=== PATIENT | female | born 1995 | race Caucasian/White ===

== ENCOUNTER 2017-08-27 11:21 | Emergency (ER) | payer OTHER ==
[~2017-08-27] VITALS: Ht 160 cm; Wt 68.9 kg
[2017-08-27] MEDS ORDERED: HYDROcodone/APAP 5/325 TABLET ONE (11:53)
[2017-08-27] MEDS ORDERED: HYDROcodone/APAP 5/325 TABLET PO PRN (12:00)
[2017-08-27 13:30] VITALS: BP 112/62
== END 2017-08-27 13:32 | disposition home or self-care (01) ==
LOC: ED 12:43
DX: S29.012A Strain of muscle and tendon of back wall of thorax, initial encounter (principal); J45.909 Unspecified asthma, uncomplicated; V29.9XXA Motorcycle rider (driver) (passenger) injured in unspecified traffic accident, initial encounter; Y93.89 Activity, other specified; Y92.830 Public park as the place of occurrence of the external cause; Y99.8 Other external cause status
CPT/HCPCS: 72072; 99284

== ENCOUNTER 2017-09-05 09:22 | Day surgery (SDC) | payer OTHER ==
[~2017-09-05] VITALS: Ht 160 cm; Wt 68.0 kg
[2017-09-05] MEDS ORDERED: LACTATED RINGERS 1,000 ML IV SCH (10:11)
[2017-09-05 10:29] LABS: HCG UR SG 1.019 (1.003-1.030)
[2017-09-05] MEDS ORDERED: GABAPENTIN 300 MG CAPSULE PO ONE (10:30)
[2017-09-05] MEDS ORDERED: SCOPOLAMINE PATCH, 1.5MG PATCH.TD72 TD ONE (10:30)
[2017-09-05] MEDS ORDERED: ACETAMINOPHEN 500 MG TABLET PO ONE (10:30)
[2017-09-05 10:56] VITALS: BP 119/77
[2017-09-05] MEDS ORDERED: MIDAZOLAM 1 MG/ML, 2ML ONE (10:58)
[2017-09-05] MEDS ORDERED: FENTANYL PF 250 MCG/5ML ONE (10:58)
[2017-09-05] MEDS ORDERED: CEFAZOLIN 1,000 MG ONE (10:59)
[2017-09-05] MEDS ORDERED: ONDANSETRON 2MG/ML, 2ML ONE (10:59)
[2017-09-05] MEDS ORDERED: DEXAMETHASONE 4 MG/ML, 1ML ONE (10:59)
[2017-09-05] MEDS ORDERED: PROPOFOL 10 MG/ML, 20ML ONE (10:59)
[2017-09-05] MEDS ORDERED: ALBU8.5H8 INH (11:03)
[2017-09-05] MEDS ORDERED: HYDR-3240 PO (11:03)
[2017-09-05] MEDS ORDERED: BUPIVACAINE/PF-EPI 0.5% 1:200K ONE (11:22)
[2017-09-05] MEDS ORDERED: NEOSPORIN OINT, 15GM ONE (11:23)
[2017-09-05] MEDS ORDERED: SUCCINYLCHOLINE 20 MG/ML, 10ML ONE (11:48)
[2017-09-05] MEDS ORDERED: ROCURONIUM 10 MG/ML,10ML ONE (11:48)
[2017-09-05] MEDS ORDERED: LABETALOL 5MG/ML, 20ML IV PRN (12:30)
[2017-09-05] MEDS ORDERED: HYDROmorphone 1 MG/ML, 1ML IV PRN (12:30)
[2017-09-05] MEDS ORDERED: DIPHENHYDRAMINE 50 MG/ML, 1ML IVPush PRN (12:30)
[2017-09-05] MEDS ORDERED: METOCLOPRAMIDE 5 MG/ML, 2ML IV PRN (12:30)
[2017-09-05] MEDS ORDERED: FENTANYL PF 100 MCG/2ML IV PRN (12:30)
[2017-09-05] MEDS ORDERED: EPHEDRINE 50 MG/ML, 1ML IM PRN (12:30)
[2017-09-05] MEDS ORDERED: PROMETHAZINE 25 MG SUPP PR PRN (12:30)
[2017-09-05] MEDS ORDERED: OXYcodone 5 MG/5 ML ORAL.SOL UDC PO PRN (12:30)
[2017-09-05] MEDS ORDERED: MIDAZOLAM 1 MG/ML, 2ML IV PRN (12:30)
[2017-09-05] MEDS ORDERED: ONDANSETRON 2MG/ML, 2ML IV PRN (12:30)
[2017-09-05] MEDS ORDERED: MEPERIDINE/PF 25MG/0.5ML IVPush PRN (12:30)
[2017-09-05] MEDS ORDERED: ALBUTEROL/IPRATROPIUM 2.5MG/0.5MG, 3 ML NPPB PRN (12:30)
[2017-09-05] MEDS ORDERED: PROMETHAZINE 25 MG/ML, 1ML IV PRN (12:30)
[2017-09-05] MEDS ORDERED: BUPIVACAINE/PF 0.5% INFIL ONE (12:48)
== END 2017-09-05 15:10 ==
LOC: OUT 09:22
PROVIDERS: ATTEND Orthopaedic Surgery
DX: S42.001A Fracture of unspecified part of right clavicle, initial encounter for closed fracture (principal); X58.XXXA Exposure to other specified factors, initial encounter; Y93.89 Activity, other specified; Y92.89 Other specified places as the place of occurrence of the external cause; Y99.8 Other external cause status; Z88.7 Allergy status to serum and vaccine; Z88.8 Allergy status to other drugs, medicaments and biological substances
CPT/HCPCS: 23515; 64415; 73000; 76000; 81025; C1713; J0330; J0690; J1100; J2250; J2405; J2704; J3010; J3490; J7120